=== PATIENT | female | born 1960 | race Caucasian/White ===

== ENCOUNTER → 2017-02-21 | Outpatient (CLI) | payer MEDICAID ==
[~2017-02-21] MED LIST: ATOR20TA PO; BUTA-177 PO; CELE200C PO; GABA300C10 PO; GEMF600T PO; HYDR-3240 PO; LIDO700A5 TD; OMEP20TA62 PO; PROP80CA12 PO; SUMA5SPR2 NAS; TEMA15CA6 PO; TIZA2TAB PO; VENL37.52 PO
== END | disposition home or self-care (01) ==
LOC: CFH 13:41
PROVIDERS: ATTEND Specialist
DX: Z13.820 Encounter for screening for osteoporosis (principal); M81.0 Age-related osteoporosis without current pathological fracture; M85.88 Other specified disorders of bone density and structure, other site
CPT/HCPCS: 77080

== ENCOUNTER → 2017-07-19 | Outpatient (CLI) | payer MEDICAID | END | disposition home or self-care (01) | LOC: RAD 14:44 | PROVIDERS: ATTEND Physician Assistant | DX: K76.0 Fatty (change of) liver, not elsewhere classified (principal); K86.2 Cyst of pancreas; M43.27 Fusion of spine, lumbosacral region; I51.7 Cardiomegaly; J98.11 Atelectasis | CPT/HCPCS: 74177 ==

== ENCOUNTER → 2018-08-05 | Outpatient (CLI) | payer MEDICAID | END | disposition home or self-care (01) | LOC: CVU 06:45 | PROVIDERS: ATTEND Internal Medicine Cardiovascular Disease | DX: I65.23 Occlusion and stenosis of bilateral carotid arteries (principal); E78.2 Mixed hyperlipidemia | CPT/HCPCS: 93880 ==

== ENCOUNTER 2019-06-03 09:07 | Outpatient (CLI) | payer MEDICAID | END 2019-06-03 23:59 | disposition home or self-care (01) | LOC: CFH 09:07 | PROVIDERS: ATTEND Internal Medicine Cardiovascular Disease | DX: I51.7 Cardiomegaly (principal); R07.89 Other chest pain | CPT/HCPCS: 78452; 93017; A9502 ==

== ENCOUNTER → 2020-06-14 | Outpatient (CLI) | payer MEDICAID ==
[~2020-06-14] MED LIST changes: -PROP80CA12 PO; +PROP80CA47 PO; -TIZA2TAB PO; +TIZA2TAB4 PO
== END | disposition home or self-care (01) ==
LOC: RAD 16:01
PROVIDERS: ATTEND Family Medicine
DX: M25.532 Pain in left wrist (principal)

== ENCOUNTER → 2021-02-08 | Outpatient (CLI) | payer MEDICAID ==
[~2021-02-08] MED LIST changes: +HYDR-2214 PO; -HYDR-3240 PO; +TIZA-106 PO; -TIZA2TAB4 PO
== END | disposition home or self-care (01) ==
LOC: CFH 13:28
PROVIDERS: ATTEND Family Medicine
DX: K76.89 Other specified diseases of liver (principal); J98.4 Other disorders of lung; R10.9 Unspecified abdominal pain
CPT/HCPCS: 74176